=== PATIENT | male | born 1960 | race African-American/Black ===

== ENCOUNTER 2017-11-12 13:26 | Emergency (ER) | payer OTHER ==
[~2017-11-12] VITALS: Ht 167.6 cm; Wt 131.8 kg
[~2017-11-12 13:26] MED LIST: ADVAI250I PO; ASPI1TAB7 PO; ATOR10TA PO; DILT360C12 PO; FLUN25I; FURO40TA PO; MOME17I; POTA20IN3 PO; SERT-129 PO; SPIR25TA PO; SYNT50TA PO; Z.0.OXYGEN INH; ZYPR20TA PO; ZYRT10TA3 PO
[2017-11-12 13:34] VITALS: BP 110/55; PULSE 72; RESP 14; TEMP 99; O2SAT 94
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
[2017-11-12] MEDS ORDERED: SODIUM CHLORID 0.9% 500 ML INJ 500 ML IV ONE (14:15)
[2017-11-12] MEDS ORDERED: MECLIZINE HCL 25 MG TAB PO ONE (14:15)
[2017-11-12 14:32] VITALS: BP_SYST 111; BP_SYST 134; BP_SYST 135; BP_DIAS 56; BP_DIAS 70; BP_DIAS 72; RESP 16; RESP 17
[2017-11-12] MEDS ORDERED: SERT-129 PO (14:48)
[2017-11-12] MEDS ORDERED: D 50CAP2 PO (14:48)
[2017-11-12] MEDS ORDERED: FURO40TA PO (14:48)
[2017-11-12] MEDS ORDERED: SPIR25TA PO (14:48)
[2017-11-12] MEDS ORDERED: BENZ0.5T PO (14:48)
[2017-11-12] MEDS ORDERED: DOCU250C7 PO (14:48)
[2017-11-12] MEDS ORDERED: [UNRECOGNIZED DRUG - CODE] PO (14:48)
[2017-11-12] MEDS ORDERED: LOSA50TA PO (14:48)
[2017-11-12] MEDS ORDERED: OLAN20TA PO (14:48)
[2017-11-12] MEDS ORDERED: METF500T PO (14:48)
[2017-11-12] MEDS ORDERED: POTA-163 PO (14:48)
[2017-11-12] MEDS ORDERED: BUPR150T3 (14:48)
[2017-11-12 14:56] LABS: AUTOMATED NEUTROPHIL # 5.4 TH/MM3 (1.8-7.7); BASOPHIL % 0.3 % (0.0-2.0); EOSINOPHIL # 0.1 TH/MM3 (0-0.4); EOSINOPHIL % 1.3 % (0.0-4.0); HEMATOCRIT 37.7 % (39.0-51.0); HEMOGLOBIN 12.4 GM/DL (13.0-17.0); LYMPH % 20.8 % (9.0-44.0); LYMPHOCYTE # 1.7 TH/MM3 (1.0-4.8); MEAN CELL VOLUME 81.4 FL (80.0-100.0); MEAN CORPUSCULAR HEMOGLOBIN 26.8 PG (27.0-34.0); MEAN PLATELET VOLUME 8.6 FL (7.0-11.0); MONO % 9.3 % (0.0-8.0); MONOCYTE # 0.7 TH/MM3 (0-0.9); NEUT % 68.3 % (16.0-70.0); PLATELET COUNT 228 TH/MM3 (150-450); RED BLOOD COUNT 4.64 MIL/MM3 (4.50-5.90); RED CELL DISTRIBUTION WIDTH 16.9 % (11.6-17.2)
--- NOTE | 2017-11-12 15:03 | RADRPT ---
EXAM DATE: 11/12/2017 2:38 PM EDT AGE/SEX: 57 years / Male INDICATIONS: Chest pain and shortness of breath. CLINICAL DATA: This is the patient's initial encounter. Patient reports that signs and symptoms have been present for 1 day and indicates a pain score of 5/10. MEDICAL/SURGICAL HISTORY: Chronic obstructive pulmonary disease. Former smoker. None. COMPARISON: Chest x-ray 12/09/2011. FINDINGS: A single AP view of the chest demonstrates the lungs to be symmetrically aerated without evidence of mass, infiltrate or effusion. The cardiomediastinal contours are unremarkable. Osseous structures a re intact. CONCLUSION: Negative examination. Electronically signed by: eJd Vasquez MD 11/12/2017 3:02 PM EDT
[2017-11-12 15:06] LABS: INTERNATIONAL NORMALIZED RATIO 1.1 RATIO; PROTHROMBIN TIME - PATIENT 10.7 SEC (9.8-11.6)
[2017-11-12 15:22] LABS: BICARBONATE 31.4 MEQ/L (21.0-32.0); BLOOD UREA NITROGEN 26 MG/DL (7-18); CALCIUM 9.4 MG/DL (8.5-10.1); CHLORIDE 94 MEQ/L (98-107); CREATININE 1.74 MG/DL (0.60-1.30); GLOMERULAR FILTRATION RATE 49 ML/MIN (>89); GLUCOSE,RANDOM 114 MG/DL (74-106); MAGNESIUM 1.9 MG/DL (1.5-2.5); SODIUM (NA) 134 MEQ/L (136-145)
[2017-11-12 15:26] LABS: TROPONIN I LESS THAN 0.02 NG/ML (0.02-0.05)
[2017-11-12 17:51] LABS: BILIRUBIN, URINE NEG (NEG); BLOOD, URINE NEG (NEG); GLUCOSE,URINE NEG (NEG); HYALINE CAST, URINE 20 /lpf (RARE); KETONE, URINE NEG (NEG); MUCUS URINE FEW /lpf (OCC); NITRITE,URINE NEG (NEG); URINE COLOR YELLOW (YELLW/STRAW); URINE LEUKOCYTE ESTERASE NEG (NEG)
[2017-11-12 18:47] VITALS: BP 139/61; PULSE 93; RESP 20; O2SAT 93
[2017-11-12] MEDS ORDERED: MECL-62 PO (18:58)
--- NOTE | 2017-11-13 14:27 | EKG ---
Date Performed: 11/12/2017 Time Performed: 14:00:59 PTAGE: 57 years EKG: SINUS TACHYCARDIA LOW QRS VOLTAGE IN EXTREMITY LEADS ABNORMAL RHYTHM ECG Since PREVIOUS TRACING , no significant change noted PREVIOUS TRACIN01/05/2012 18.53 DOCTOR: Chon Ramirez Interpretating Date/Time 11/13/2017 14:26:24
== END 2017-11-12 19:08 | disposition home or self-care (01) ==
LOC: NEPC 13:26
DX: R42 Dizziness and giddiness (principal); E11.9 Type 2 diabetes mellitus without complications; I11.0 Hypertensive heart disease with heart failure; I50.9 Heart failure, unspecified; R07.1 Chest pain on breathing; Z79.84 Long term (current) use of oral hypoglycemic drugs
CPT/HCPCS: 71045; 80048; 81001; 83735; 84484; 85025; 85610; 85730; 93005; 96360; 96361; 99285; J7040